=== PATIENT | male | born 1945 | race Caucasian/White ===

== ENCOUNTER 2018-02-06 20:44 | Emergency (ER) | payer OTHER ==
--- NOTE | 2018-02-06 21:53 | RAD REPORT ---
EXAM DESCRIPTION: RAD - ENTEROSTOMY TUBE CHECK W/CONTR - 02/06/2018 9:35 pm CLINICAL HISTORY: Abdominal pain/gastrostomy tube check FINDINGS: The doorperson film demonstrates the tip of the gastrostomy tube overlying the stomach. Gastrografin was administered into the gastrostomy tube. Contrast opacifies the gastric antrum. No ex travasation of contrast is seen. Contrast flows into the duodenum.
--- NOTE | 2018-02-06 21:56 | ER ---
Nurse's Notes [facility] Name: Sai Hobbs Age: 73 yrs Sex: Male : 1945 Arrival Date: 02/06/2018 Time: 20:50 Bed 25 Private MD: Diagnosis: Gastrostomy malfunction Presentation: 02/06 20:51 Presenting complaint: EMS states: toned out for report of pt having G-tube pulled out bb with a part missing. Transition of care: patient was received from another setting of care (long-term care facility), [facility]. Onset of symptoms was February 06, 2018. Risk Assessment: Do you want to hurt yourself or someone else? Patient reports no desire to harm self or others. Initial Sepsis Screen: Does the patient meet any 2 criteria? No. Patient's initial sepsis screen is negative. Does the patient have a suspected source of infection? No. Patient's initial sepsis screen is negative. Care prior to arrival: None. 20:51 Method Of Arrival: EMS: [facility] bb 20:51 Acuity: RAZIA 4 bb Historical: - Allergies: 20:58 No Known Allergies; bb - Home Meds: 20:58 amlodipine 10 mg oral tab 1 tab once daily [Active]; atorvastatin 20 mg Oral tab 1 tab bb once daily [Active]; clonidine HCl 0.1 mg Oral tab 1 tab 3 times per day for Hypertension [Active]; clopidogrel 75 mg Oral tab 1 tab once daily [Active]; Depakote Sprinkles 125 mg Oral cpSP 1 caps 3 times per day [Active]; finasteride 5 mg Oral tab 1 tab once daily [Active]; levothyroxine 100 mcg tab 1 tab once daily [Active]; metoprolol tartrate 25 mg Oral tab 1 tab 2 times per day [Active]; Namenda 10 mg Oral tab 1 tab 2 times per day [Active]; tamsulosin 0.4 mg Oral cp24 1 cap twice daily [Active]; trazodone 50 mg Oral tab 1 tab at bedtime [Active]; - PMHx: 20:58 Aphasia; Bipolar disorder; Dementia; DYSPHAGIA; Hypertension; Hypothyroidism; bb Schizophrenia; - Immunization history:: Adult Immunizations up to date. - Social history:: Smoking status: unknown. - Ebola Screening: : No symptoms or risks identified at this time. Screenin:06 Abuse screen: Denies threats or abuse. Denies injuries from another. Nutritional rv screening: No deficits noted. Tuberculosis screening: No symptoms or risk factors identified. Fall Risk None identified. Assessment: 21:04 General: Appears in no apparent distress. comfortable, slender, Behavior is calm, rv combative. Pain: Unable to use pain scale. Patient is disoriented. Neuro: Level of Consciousness is awake. Cardiovascular: Heart tones S1 S2 present. Respiratory: Airway is patent. GI: No signs and/or symptoms were reported involving the gastrointestinal system. GI: PULLED OUT PEG TUBE FROM HOME HEALTH. : No signs and/or symptoms were reported regarding the genitourinary system. EENT: No signs and/or symptoms were reported regarding the EENT system. 22:34 Reassessment: Patient appears in no apparent distress at this time. Patient is alert, rv oriented x 3, equal unlabored respirations, skin warm/dry/pink. EMS [facility] CAME IN TO TRANSPORT PATIENT BACK TO [facility]. Vital Signs: 20:47 BP 169 / 96 RA Supine (auto/reg); Pulse 65; Temp 97.7(TE); Pulse Ox 95% on R/A; jp3 20:50 BP 178 / 102; Pulse 66; Resp 18 S; Pulse Ox 99% on R/A; bb 22:35 BP 147 / 90; Pulse 65; Pulse Ox 99% on R/A; rv ED Course: 20:50 Patient arrived in ED. bb 20:50 Arm band placed on Patient placed in an exam room, on a stretcher, on pulse oximetry. bb 20:53 Triage completed. bb 20:54 Patient has correct armband on for positive identification. Side rails up X 1. Pulse ox jp3 on. NIBP on. 20:58 Jorge Chew MD is Attending Physician. gs 21:05 PEG TUBE PLACEMENT. rv 21:35 ENTEROSTOMY TUBE CHECK W/CONTR In Process Unspecified. EDMS 21:37 X-ray completed. Portable x-ray completed in exam room. Patient tolerated procedure sw poorly. 22:37 Patient did not have IV access during this emergency room visit. rv Administered Medications: No medications were administered Outcome: 21:55 Discharge ordered by . gs 22:36 Discharged to long-term. Report called to ADILSON ORTIZ Transfer form completed. rv 22:36 Condition: improved 22:36 Discharge instructions given to EMS. 22:37 Patient left the ED. rv Signatures: Dispatcher [employer] EDBreanna Cabrera RN RN bb Warren, Shannon sw Starr, Gregory, MD MD gs Vicente, Ronaldo, RN RN rv Pisarski, Jacob jp3
--- NOTE | 2018-02-06 21:56 | EDPHYS ---
Physician Documentation [facility] Name: Sai Hobbs Age: 73 yrs Sex: Male : 1945 Arrival Date: 02/06/2018 Time: 20:50 Bed 25 Private MD: ED Physician Jorge Chew HPI: 02/06 21:52 This 73 yrs old Male presents to ER via EMS with complaints of G-TUBE gs displacement. 21:52 Unable to obtain HPI due to baseline dementia. gs Historical: - Allergies: 20:58 No Known Allergies; bb - Home Meds: 20:58 amlodipine 10 mg oral tab 1 tab once daily [Active]; atorvastatin 20 mg Oral tab 1 tab bb once daily [Active]; clonidine HCl 0.1 mg Oral tab 1 tab 3 times per day for Hypertension [Active]; clopidogrel 75 mg Oral tab 1 tab once daily [Active]; Depakote Sprinkles 125 mg Oral cpSP 1 caps 3 times per day [Active]; finasteride 5 mg Oral tab 1 tab once daily [Active]; levothyroxine 100 mcg tab 1 tab once daily [Active]; metoprolol tartrate 25 mg Oral tab 1 tab 2 times per day [Active]; Namenda 10 mg Oral tab 1 tab 2 times per day [Active]; tamsulosin 0.4 mg Oral cp24 1 cap twice daily [Active]; trazodone 50 mg Oral tab 1 tab at bedtime [Active]; - PMHx: 20:58 Aphasia; Bipolar disorder; Dementia; DYSPHAGIA; Hypertension; Hypothyroidism; bb Schizophrenia; - Immunization history:: Adult Immunizations up to date. - Social history:: Smoking status: unknown. - Ebola Screening: : No symptoms or risks identified at this time. ROS: 21:52 Unable to obtain ROS due to baseline dementia. gs Exam: 21:52 Constitutional: The patient appears non-toxic. gs 21:52 Cardiovascular: Rate: normal, Rhythm: regular, Pulses: no pulse deficits are appreciated. 21:52 Respiratory: Exam negative for acute changes, Breath sounds: are clear throughout. 21:52 Abdomen/GI: Palpation: abdomen is soft and non-tender, in all quadrants, in the stoma some excoriation. Vital Signs: 20:47 BP 169 / 96 RA Supine (auto/reg); Pulse 65; Temp 97.7(TE); Pulse Ox 95% on R/A; jp3 20:50 BP 178 / 102; Pulse 66; Resp 18 S; Pulse Ox 99% on R/A; bb 22:35 BP 147 / 90; Pulse 65; Pulse Ox 99% on R/A; rv Procedures: 21:52 G-tube placement: a 16 Gibraltarian catheter was placed, by the ED physician, Jorge gillette MD placement confirmed by Gastrografin study. MDM: 20:59 Patient medically screened. 21:52 Data reviewed: vital signs, nurses notes. 02/06 21:35 Order name: ENTEROSTOMY TUBE CHECK W/CONTR; Complete Time: 21:55 EDMS Administered Medications: No medications were administered Disposition: 02/06/18 21:55 Discharged to Home. Impression: Gastrostomy malfunction. - Condition is Stable. - Discharge Instructions: Gastrostomy Tube Replacement. - SBAR form, Medication Reconciliation Form, Thank You Letter, Antibiotic Education, Prescription Opioid Use form. - Follow up: Private Physician; When: 2 - 3 days; Reason: Re-evaluation by your physician. Signatures: Dispatcher [employer] [facility] Breanna Jenkins RN RN Jorge Brand MD MD Félix Venegas RN RN rv Corrections: (The following items were deleted from the chart) 21:35 21:00 Abdomen 1 View+RAD.RAD.BRZ ordered. [facility] EDHI 22:37 21:55 02/06/2018 21:55 Discharged to Home. Impression: Gastrostomy malfunction. rv Condition is Stable. Forms are Medication Reconciliation Form, Thank You Letter, Antibiotic Education, Prescription Opioid Use. Follow up: Private Physician; When: 2 - 3 days; Reason: Re-evaluation by your physician.
[2018-02-06 22:43] VITALS: TEMP 97.7
[2018-02-06 22:44] VITALS: O2SAT 99
[2018-02-06 22:45] VITALS: BP 147/90
== END 2018-02-06 22:37 | disposition home or self-care (01) ==
LOC: ER 20:44
PROC: 0D20XUZ Change Feeding Device in Upper Intestinal Tract, External Approach (ICD-10-PCS; principal; 2018-02-06)
DX: K94.23 Gastrostomy malfunction (principal); F03.90 Unspecified dementia, unspecified severity, without behavioral disturbance, psychotic disturbance, mood disturbance, and anxiety; I10 Essential (primary) hypertension; E03.9 Hypothyroidism, unspecified; R13.10 Dysphagia, unspecified; Y73.8 Miscellaneous gastroenterology and urology devices associated with adverse incidents, not elsewhere classified; Y92.019 Unspecified place in single-family (private) house as the place of occurrence of the external cause
CPT/HCPCS: 49465; 99284

== ENCOUNTER 2018-02-16 03:37 | Inpatient (IN) | payer OTHER ==
[2018-02-16] MEDS ORDERED: ALBUTEROL 2.5 MG/3 ML NEB SOL ONE (04:18)
[2018-02-16] MEDS ORDERED: METHYLPREDNISOLONE 125 MG INJ ONE (04:18)
[2018-02-16] MEDS ORDERED: IPRATROPIUM BROM 0.5MG/2.5ML ONE (04:18)
[2018-02-16] MEDS ORDERED: ONDANSETRON 4 MG/2 ML VIAL ONE (04:18)
[2018-02-16 04:19] LABS: Absolute Lymphocytes (CBC) 1.3 K/uL (0.7-4.9); Absolute Monocytes 1.3 K/uL (0.1-1.3); Absolute Neutrophil 12.1 K/uL (1.8-8.0); Basophils % 0.3 % (0-1.3); Hematocrit 42.1 % (39.6-49.0); Lymphocytes % 8.8 % (15.3-44.8); MCH 28.9 pg (27.0-35.0); MCV 86.4 fL (80-100); MPV 8.4 fL (7.6-11.3); Monocytes % 8.8 % (3.3-12.3); RBC Red Blood Cell Count 4.88 M/uL (4.33-5.43)
[2018-02-16] MEDS ORDERED: PANTOPRAZOLE 40 MG INJ ONE (04:19)
[2018-02-16] MEDS ORDERED: CEFTRIAXONE/SWI 1gm 1 GM/10 ML SYR ONE (04:19)
[2018-02-16] MEDS ORDERED: NA CHLORIDE 0.9% 2,000 ML ONE (04:19)
[2018-02-16 04:37] LABS: Albumin 3.8 g/dL (3.4-5.0); Potassium 3.6 mmol/L (3.5-5.1); Protein, Total 7.8 g/dL (6.4-8.2)
[2018-02-16 04:50] LABS: Protime INR 1.11
[2018-02-16] MEDS ORDERED: ACETAMINOPHEN 650MG/RECT SUPP PR ONE (05:43)
[2018-02-16 05:59] LABS: Urine Blood 1+ (NEG); Urine Glucose NEGATIVE (NEG); Urine Protein 2+ (NEG); Urine Specific Gravity 1.025 (1.005-1.030)
[2018-02-16 06:03] LABS: Urine Bacteria LOADED /HPF (NONE SEEN); Urine Culture Reflex Order NOT NEEDED
[2018-02-16 06:04] LABS: Urine RBC <5 /HPF (NONE SEEN)
--- NOTE | 2018-02-16 06:22 | EDPHYS ---
Physician Documentation [facility] Name: Sai Hobbs Age: 73 yrs Sex: Male : 1945 Arrival Date: 02/16/2018 Time: 03:40 Bed 7 Private MD: ED Physician Chilo Zaragoza HPI: 02/16 03:43 This 73 yrs old Male presents to ER via Unassigned with complaints of ps1 Nausea/Vomiting. 03:43 The patient presents to the emergency department vomiting blood, a small amount. ps1 patient has had repetitive vomiting today and started having dark coffee ground emesis tonight. He was BIBEMS, has a history of aphasia, [facility] patient. Tachycardia. . Historical: - Allergies: 03:52 No Known Allergies; ao - Home Meds: 03:52 amlodipine 10 mg tab 1 tab once daily [Active]; atorvastatin 20 mg Oral tab 1 tab once ao daily [Active]; clopidogrel 75 mg Oral tab 1 tab once daily [Active]; finasteride 5 mg Oral tab 1 tab once daily [Active]; levothyroxine 100 mcg tab 1 tab once daily [Active]; Depakote Sprinkles 125 mg Oral cpSP 1 caps 3 times per day [Active]; metoprolol tartrate 25 mg Oral tab 1 tab 2 times per day [Active]; Namenda 10 mg Oral tab 1 tab 2 times per day [Active]; tamsulosin 0.4 mg Oral cp24 1 cap twice daily [Active]; clonidine HCl 0.1 mg Oral tab 1 tab 3 times per day for Hypertension [Active]; - PMHx: 03:52 Aphasia; Bipolar disorder; Dementia; DYSPHAGIA; Hypertension; Hypothyroidism; ao Schizophrenia; CVA; muscle wasting and atrophy; - PSHx: 03:52 None; ao - Immunization history:: Adult Immunizations unknown. - Social history:: Smoking status: unknown. - Ebola Screening: : Patient negative for fever greater than or equal to 101.5 degrees Fahrenheit, and additional compatible Ebola Virus Disease symptoms Patient denies exposure to infectious person Patient denies travel to an Ebola-affected area in the 21 days before illness onset. ROS: 03:43 Unable to obtain ROS due to aphasia. ps1 Exam: 03:43 Head/Face: Normocephalic, atraumatic. ENT: Nares patent. No nasal discharge, no ps1 septal abnormalities noted. Tympanic membranes are normal and external auditory canals are clear. Oropharynx with no redness, swelling, or masses, exudates, or evidence of obstruction, uvula midline. Mucous membranes moist. 03:43 Abdomen/GI: Soft, non-tender, with normal bowel sounds. No distension or tympany. No guarding or rebound. No evidence of tenderness throughout. Back: No spinal tenderness. No costovertebral tenderness. Full range of motion. Skin: Warm, dry with normal turgor. Normal color with no rashes, no lesions, and no evidence of cellulitis. MS/ Extremity: Pulses equal, no cyanosis. Neurovascular intact. Full, normal range of motion. Neuro: Awake and alert, GCS 15, oriented to person, place, time, and situation. Cranial nerves II-XII grossly intact. Sensory grossly intact. 03:43 Constitutional: The patient appears alert, in obvious distress. 03:43 Head/face: 03:43 Cardiovascular: Rate: tachycardic, Rhythm: regular. 03:43 Respiratory: moderate respiratory distress is noted, Respirations: normal, tachypneic. Vital Signs: 03:43 BP 113 / 66; Pulse 115; Resp 26; Temp 99.8(A); Pulse Ox 100% on 2 lpm NC; Weight 68.04 ao kg (R); Height 5 ft. 5 in. (165.10 cm) (R); 05:32 BP 136 / 74; Pulse 126; Resp 36; Temp 100.5(A); Pulse Ox 97% on 2 lpm NC; ak1 06:22 BP 133 / 75; Pulse 117 MON; Resp 37 S; Temp 99.2(A); Pulse Ox 97% on 2 lpm NC; ak1 07:25 BP 136 / 66; Pulse 109; Resp 19; Pulse Ox 100% on R/A; hb 03:43 Body Mass Index 24.96 (68.04 kg, 165.10 cm) ao MDM: 04:17 Patient medically screened. ps1 02/16 03:49 Order name: Protime (+inr); Complete Time: 04:54 ps1 02/16 03:49 Order name: Blood Culture Adult (2) ps1 02/16 03:49 Order name: CBC with Diff; Complete Time: 04:25 ps1 02/16 03:49 Order name: Lactate; Complete Time: 04:54 ps1 02/16 03:49 Order name: Lipase; Complete Time: 04:54 ps1 02/16 03:49 Order name: Troponin (emerg Dept Use Only); Complete Time: 04:54 ps1 02/16 03:49 Order name: Chest Single View XRAY ps1 02/16 03:49 Order name: CT Abd/Pelvis - W/Contrast ps1 02/16 03:49 Order name: CMP; Complete Time: 04:54 ps1 02/16 04:48 Order name: Urine Dipstick--Ancillary (enter results); Complete Time: 06:01 ms 02/16 04:48 Order name: Urine Culture ms 02/16 04:48 Order name: Urine Microscopic Only; Complete Time: 06:08 ms 02/16 06:13 Order name: Lactate ak1 02/16 03:49 Order name: Cardiac monitoring; Complete Time: 04:39 ps1 02/16 03:49 Order name: EKG - Nurse/Tech; Complete Time: 05:04 ps1 02/16 03:49 Order name: IV Saline Lock - Large Bore; Complete Time: 04:39 ps1 02/16 03:49 Order name: Labs collected and sent; Complete Time: 04:39 ps1 02/16 03:49 Order name: O2 Per Protocol; Complete Time: 04:40 ps1 02/16 03:49 Order name: O2 Sat Monitoring; Complete Time: 04:40 ps1 02/16 03:49 Order name: Urine Dipstick-Ancillary (obtain specimen); Complete Time: 04:40 ps1 02/16 03:49 Order name: Straight Cath - Urine; Complete Time: 04:38 ps1 Administered Medications: 04:35 Drug: Zofran 4 mg Route: IVP; Site: right forearm; ao 05:04 Follow up: Response: No adverse reaction ak1 04:38 Drug: Rocephin - (cefTRIAXone) 1 grams Route: IVPB; Infused Over: 30 mins; Site: left ao forearm; 04:48 Follow up: IV Status: Completed infusion ak1 04:40 Drug: NS 0.9% (30 ml/kg) 30 ml/kg Route: IV; Rate: bolus; Site: right forearm; ak1 06:25 Follow up: IV Status: Completed infusion ak1 04:40 Drug: SOLU-Medrol 125 mg Route: IVP; Site: right forearm; ao 05:05 Follow up: Response: No adverse reaction ak1 04:40 Drug: DuoNeb (3:1) (2.5 mg - 0.5 mg) 3 ml Route: Nebulizer; ao 05:04 Follow up: Response: No adverse reaction ak1 04:40 Drug: ProTONIX 80 mg Route: IVP; Site: right forearm; ao 05:04 Follow up: Response: No adverse reaction ak1 05:47 Drug: Tylenol Suppository 650 mg Route: MN; ak1 06:06 Follow up: Response: No adverse reaction ak1 Disposition: 02/16/18 06:22 Hospitalization ordered by Jett Villalpando for Inpatient Admission. Preliminary diagnosis are Sepsis, Acute Cystitis, lactic acidosis, Infrarenal AAA. - Bed requested for Telemetry/MedSurg (Inpatient). - Status is Inpatient Admission. hb - Condition is Fair. - Problem is new. - Symptoms are unchanged. UTI on Admission? Yes Signatures: Dispatcher [employer] EDMS Jeni Hackett RN RN ak1 Ishan Mcqueen RN RN ao Baxter, Heather, RN RN Chilo Zaragoza MD MD ps1 Joy Novak Corrections: (The following items were deleted from the chart) 05:48 03:49 Accucheck ordered. ps1 ak1 07:27 06:22 Hospitalization Ordered by Jett Villalpando MD for Inpatient Admission. Preliminary eb diagnosis is Sepsis; Acute Cystitis; lactic acidosis; Infrarenal AAA. Bed requested for Telemetry/MedSurg (Inpatient). Status is Inpatient Admission. Condition is Fair. Problem is new. Symptoms are unchanged. UTI on Admission? Yes. ps1 08:03 07:27 02/16/2018 06:22 Hospitalization Ordered by Jett Villalpando MD for Inpatient hb Admission. Preliminary diagnosis is Sepsis; Acute Cystitis; lactic acidosis; Infrarenal AAA. Bed requested for Telemetry/MedSurg (Inpatient). Status is Inpatient Admission. Condition is Fair. Problem is new. Symptoms are unchanged. UTI on Admission? Yes. eb
--- NOTE | 2018-02-16 06:22 | ER ---
Nurse's Notes [facility] Name: Sai Hobbs Age: 73 yrs Sex: Male : 1945 Arrival Date: 02/16/2018 Time: 03:40 Bed 7 Private MD: Diagnosis: Sepsis;Acute Cystitis;lactic acidosis;Infrarenal AAA Presentation: 02/16 03:42 Presenting complaint: EMS states: Patient has been vomiting during the day. Nursing ao home [place] reported last emesis was coffee ground. Transition of care: patient was not received from another setting of care. Onset of symptoms is unknown. Care prior to arrival: None. 03:42 Method Of Arrival: EMS: [facility] ao 03:42 Acuity: RAZIA 3 ao 04:15 Risk Assessment: Do you want to hurt yourself or someone else? Patient reports no ao desire to harm self or others. Initial Sepsis Screen: Does the patient meet any 2 criteria? RR > 20 per min. Altered Mental Status. Yes Does the patient have a suspected source of infection? No. Patient's initial sepsis screen is negative. If YES to both, name of provider notified: Chilo Zaragoza MD. Triage Assessment: 04:36 GI: Reports correction report vomiting blood. ao 04:41 General: Appears in no apparent distress. emaciated, Behavior is cooperative, Smells of ak1 urine. Historical: - Allergies: 03:52 No Known Allergies; ao - Home Meds: 03:52 amlodipine 10 mg tab 1 tab once daily [Active]; atorvastatin 20 mg Oral tab 1 tab once ao daily [Active]; clopidogrel 75 mg Oral tab 1 tab once daily [Active]; finasteride 5 mg Oral tab 1 tab once daily [Active]; levothyroxine 100 mcg tab 1 tab once daily [Active]; Depakote Sprinkles 125 mg Oral cpSP 1 caps 3 times per day [Active]; metoprolol tartrate 25 mg Oral tab 1 tab 2 times per day [Active]; Namenda 10 mg Oral tab 1 tab 2 times per day [Active]; tamsulosin 0.4 mg Oral cp24 1 cap twice daily [Active]; clonidine HCl 0.1 mg Oral tab 1 tab 3 times per day for Hypertension [Active]; - PMHx: 03:52 Aphasia; Bipolar disorder; Dementia; DYSPHAGIA; Hypertension; Hypothyroidism; ao Schizophrenia; CVA; muscle wasting and atrophy; - PSHx: 03:52 None; ao - Immunization history:: Adult Immunizations unknown. - Social history:: Smoking status: unknown. - Ebola Screening: : Patient negative for fever greater than or equal to 101.5 degrees Fahrenheit, and additional compatible Ebola Virus Disease symptoms Patient denies exposure to infectious person Patient denies travel to an Ebola-affected area in the 21 days before illness onset. Screenin:13 Abuse screen: Denies threats or abuse. Denies injuries from another. Nutritional ao screening: Difficulty chewing/swallowing?. Tuberculosis screening: No symptoms or risk factors identified. Fall Risk Secondary diagnosis (15 points) IV access (20 points). Assessment: 03:53 General: Appears in no apparent distress. slender. Pain: Unable to use pain scale. ao FLACC scale score is 0 out of 10. Neuro: Level of Consciousness is awake, Oriented to person, Speech with expressive aphasia noted. Cardiovascular: Capillary refill < 3 seconds. Respiratory: Airway is patent Respiratory effort is asymmetrical. GI: Abdomen is non-distended, Parent/caregiver reports the patient having nausea, vomiting, Vomiting blood. : No signs and/or symptoms were reported regarding the genitourinary system. EENT: No signs and/or symptoms were reported regarding the EENT system. Derm: Skin is intact, Skin is pink, warm \T\ dry. normal, Skin temperature is warm. Musculoskeletal: Range of motion: limited in all extremities, Contracted all extremities. 05:07 Reassessment: No changes from previously documented assessment. pt continues to breath ak1 26 to 30 breaths per minuet. pt continue to lay in position on right side. pt awake and tolerating procedures well. pt currently in CT, will update vitals upon return as well as continue septic fluid bolus. 06:09 Reassessment: No changes from previously documented assessment. sepsis sheet completed ak1 and placed on the chart. 07:26 Reassessment: Patient appears in no apparent distress at this time. Patient and/or hb family updated on plan of care and expected duration. Pain level reassessed. Admission ordered, awaiting room assignment at this time. Vital Signs: 03:43 BP 113 / 66; Pulse 115; Resp 26; Temp 99.8(A); Pulse Ox 100% on 2 lpm NC; Weight 68.04 ao kg (R); Height 5 ft. 5 in. (165.10 cm) (R); 05:32 BP 136 / 74; Pulse 126; Resp 36; Temp 100.5(A); Pulse Ox 97% on 2 lpm NC; ak1 06:22 BP 133 / 75; Pulse 117 MON; Resp 37 S; Temp 99.2(A); Pulse Ox 97% on 2 lpm NC; ak1 07:25 BP 136 / 66; Pulse 109; Resp 19; Pulse Ox 100% on R/A; hb 03:43 Body Mass Index 24.96 (68.04 kg, 165.10 cm) ao ED Course: 03:40 Patient arrived in ED. ao 03:40 Chilo Zaragoza MD is Attending Physician. ps1 03:43 Triage completed. ao 03:52 Arm band placed on right wrist. Patient placed in an exam room, on a stretcher, on ao lead carpenter, on pulse oximetry, Patient notified of wait time. 04:00 Inserted saline lock: 20 gauge in right forearm, using aseptic technique. ,using ak1 aseptic technique. placed by Ishan Landeros RN Blood collected. 04:00 Oxygen administration via nasal cannula \T\ 2L/min. ak1 04:11 Chest Single View XRAY In Process Unspecified. EDMS 04:30 Straight cath inserted, using sterile technique, 16 Fr. Specimen obtained. Patient ak1 tolerated well. 04:36 Patient has correct armband on for positive identification. Pulse ox on. NIBP on. ao 04:37 Ishan Mcqueen RN is Primary Nurse. ao 04:49 Notified ED physician of a critical lab result(s). lactate of 5.1 Dr Zaragoza notified. bb 05:07 No provider procedures requiring assistance completed. ak1 05:21 CT Abd/Pelvis - W/Contrast In Process Unspecified. EDMS 05:23 CT completed. Pt tolerated procedure poorly. Patient moved to CT via stretcher. Patient eh moved back from CT. 05:34 Jeni Hackett RN is Primary Nurse. ak1 06:21 Jett Villalpando MD is Hospitalizing Provider. ps1 06:25 Patient admitted, IV remains in place. ak1 07:36 Primary Nurse role handed off by Jeni Hackett RN eb 07:37 Dye, Cortney, RN is Primary Nurse. hb 07:37 T\T\S collected, blood band applied to patient. add on labs drawn by ar and sent to lab. 3 Administered Medications: 04:35 Drug: Zofran 4 mg Route: IVP; Site: right forearm; ao 05:04 Follow up: Response: No adverse reaction ak1 04:38 Drug: Rocephin - (cefTRIAXone) 1 grams Route: IVPB; Infused Over: 30 mins; Site: left ao forearm; 04:48 Follow up: IV Status: Completed infusion ak1 04:40 Drug: NS 0.9% (30 ml/kg) 30 ml/kg Route: IV; Rate: bolus; Site: right forearm; ak1 06:25 Follow up: IV Status: Completed infusion ak1 04:40 Drug: SOLU-Medrol 125 mg Route: IVP; Site: right forearm; ao 05:05 Follow up: Response: No adverse reaction ak1 04:40 Drug: DuoNeb (3:1) (2.5 mg - 0.5 mg) 3 ml Route: Nebulizer; ao 05:04 Follow up: Response: No adverse reaction ak1 04:40 Drug: ProTONIX 80 mg Route: IVP; Site: right forearm; ao 05:04 Follow up: Response: No adverse reaction ak1 05:47 Drug: Tylenol Suppository 650 mg Route: LA; ak1 06:06 Follow up: Response: No adverse reaction ak1 Outcome: 06:22 Decision to Hospitalize by Provider. ps1 06:25 Condition: unchanged ak1 06:25 Instructed on the need for admit. 07:59 Admitted to Tele accompanied by nurse, accompanied by tech, via stretcher, room 417, with chart, Report called to JARED Goldstein 08:03 Patient left the ED. Signatures: Dispatcher [employer] EDMS Fred Silva Brenda, RN RN bb Krenek, Amber RN RN tristen1 Ishan Mcqueen RN RN ao Baxter, Heather, RN RN Nubia Miramontes formerly [facility] Chilo Zaragoza MD MD ps1 Botello, Elizabeth eb
[2018-02-16] MEDS ORDERED: MORPHINE 4 MG/ML SYR IV PRN (07:06)
[2018-02-16] MEDS ORDERED: ONDANSETRON 4 MG/2 ML VIAL IV PRN (07:06)
[2018-02-16] MEDS ORDERED: ACETAMINOPHEN 500 MG TAB PO PRN (07:06)
[2018-02-16] MEDS ORDERED: NA CHLORIDE 0.9% 1,000 ML IV SCH (08:00)
[2018-02-16] MEDS: DIVALPROEX NA 125 MG CAP PO SCH ×3 (09:00→21:52)
[2018-02-16] MEDS: WATER FOR INJ,STERILE 10 ML IV SCH ×2 (09:00→21:30)
[2018-02-16] MEDS: HYDROCORTISONE SUC 100 MG INJ IV SCH ×2 (09:00→21:52)
--- NOTE | 2018-02-16 09:11 | RAD REPORT ---
EXAM DESCRIPTION: RAD - Chest Single View - 02/16/2018 4:11 am CLINICAL HISTORY: Abdominal pain, dysphagia, cough COMPARISON: September 2016 TECHNIQUE: AP portable chest image was obtained [id number] hours . FINDINGS: Positioning was not optimal for the examination. Interstitial markings are prominent but n ot clearly different from comparison. No superimposed failure, infiltrate or mass. Heart size and pul monary vasculature within normal limits. Loop recorder overlies the lower left chest. Several skin fo ld artifacts are present. No measurable pleural effusion and no pneumothorax. No gross bony abnormali ty seen. Aorta is accentuated by rotation and positioning. IMPRESSION: Chronic interstitial lung disease. No acute finding or significant change from September 2016.
--- NOTE | 2018-02-16 09:18 | P.HP ---
Certification for Inpatient Patient admitted to: Inpatient With expected LOS: >2 Midnights Patient will require the following post-hospital care: None Practitioner: I am a practitioner with admitting privileges, knowledge of patient current condition, hospital course, and medical plan of care. Services: Services provided to patient in accordance with Admission requirements found in Title 42 Section 412.3 of the Code of Federal Regulations Patient History Date of Service: 02/16/18 Reason for admission: UTI/septic/AFib with RVR History of Present Illness: Patient is a 73-year-old gentleman who came to the hospital with fever, shakes, and chills. Patient lives at [facility]. Patient apparently was running fevers. Patient also was tachycardic. Patient came into the emergency room for further evaluation. In the emergency room patient was found to have a urinary tract infection. Patient was started on IV hydration and blood cultures were obtained. Patient was also found to have AFib with RVR. Patient is on a beta-mesfin. According to patient's daughter, Raissa, who is patient's medical prior of real estate attorney([phone]) patient is a full code. Patient normally gets to wheelchair and scoots around the facility. Patient is aphasic. At this time patient will need admission. He will require inpatient workup. Patient is admitted to the hospital for further workup Allergies No Known Allergies Allergy (Verified 09/27/16 02:56) Home Medications: Acetaminophen [Acetaminophen ER] 650 mg PO Q4H PRN 09/27/16 Atorvastatin Calcium [Lipitor*] 20 mg PO BEDTIME 09/27/16 Clopidogrel Bisulfate [Plavix*] 75 mg PO DAILY 09/27/16 Divalproex [Depakote Sprinkle*] 125 mg PO TID 09/27/16 Donepezil [Aricept*] 10 mg PO BEDTIME 09/27/16 Finasteride [Proscar*] 5 mg PO DAILY 09/27/16 Guaifenesin/Dextromethorphan [Robafen-Dm Syrup] 5 ml PO Q6H PRN 09/27/16 Levothyroxine [Synthroid*] 100 mcg PO DAILY 09/27/16 Memantine HCl [Namenda*] 10 mg PO BID 09/27/16 Metoprolol Tartrate [Lopressor*] 25 mg PO DAILY 09/27/16 Multivitamin [Daily Multivitamin] 1 tab PO DAILY 09/27/16 Tamsulosin HCl [Flomax] 0.4 mg PO BID 09/27/16 Trazodone HCl 25 mg PO BEDTIME 09/27/16 cloNIDine HCl [Catapres*] 0.1 mg PO TID 09/27/16 Amlodipine [Norvasc*] 10 mg PO DAILY #30 tab 09/29/16 predniSONE [Prednisone*] 40 mg PO [id number] #20 tab 09/29/16 - Past Medical/Surgical History Diabetic: No -: Hypertension -: Hyperlipidemia -: Hypothyroidism -: Dementia -: Benign prostatic hyperplasia -: History of urinary retention -: History of CVA -: Iron deficiency anemia -: Bipolar Disorder -: Schizophrenia -: PEG -: cardiac stent Psychosocial/ Personal History: intermediate patient. - Family History Father Family History: Reviewed- Non-Contributory - Social History Alcohol use: No CD- Drugs: No Caffeine use: No Review of Systems is unable to be obtained Physical Examination - Vital Signs Temperature: 99.2 F Blood Pressure: 136/66 Pulse: 109 Respirations: 19 - Physical Exam General: Alert, In no apparent distress, Confused HEENT: Atraumatic, PERRLA, Mucous membr. moist/pink, EOMI, Sclerae nonicteric Neck: Supple, 2+ carotid pulse no bruit, No LAD, Without JVD or thyroid abnormality Respiratory: Clear to auscultation bilaterally, Normal air movement Cardiovascular: Regular rate/rhythm, Normal S1 S2, Systolic murmur Gastrointestinal: Normal bowel sounds, Soft and benign, Non-distended, No tenderness Musculoskeletal: No clubbing, No swelling, No tenderness Integumentary: No rashes Neurological: Cranial nerves 3-12 intact, Normal reflexes 2+, Abnormal gait, Abnormal speech, Abnormal strength, Abnormal tone, Abnormal affect Lymphatics: No axilla or inguinal lymphadenopathy - Studies Laboratory Data (last 24 hrs) 02/16/18 04:00: Sodium 148 H, Potassium 3.6, BUN 29 H, Creatinine 1.60 H, Glucose 162 H, Total Bilirubin 1.0, AST 13 L, ALT 13, Alkaline Phosphatase 125 H , Lipase 39 L 02/16/18 04:00: WBC 14.8 H, Hgb 14.1, Hct 42.1, Plt Count 204 02/16/18 04:00: PT 13.1 H, INR 1.11 Assessment & Plan - Problems (Diagnosis) (1) Acute sepsis Current Visit: Yes Status: Acute (2) COPD exacerbation Onset Date: 09/27/16 Current Visit: No Status: Acute (3) Dementia Current Visit: No Status: Chronic Qualifiers: Dementia type: unspecified type Dementia behavioral disturbance: without behavioral disturbance Qualified Code(s): F03.90 - Unspecified dementia without behavioral disturbance (4) History of CVA (cerebrovascular accident) Current Visit: No Status: Chronic (5) History of coronary artery disease Current Visit: No Status: Chronic (6) UTI (urinary tract infection) Onset Date: 03/26/16 Current Visit: No Status: Suspected Qualifiers: Urinary tract infection type: acute cystitis Hematuria presence: without hematuria Qualified Code(s): N30.00 - Acute cystitis without hematuria (7) DIEGO (acute kidney injury) Current Visit: Yes Status: Acute - Plan PLAN: 1. IV antibiotics 2. IV hydration 3. Lopressor for rate control 4. Resume anticoagulation 5. Strict BS and BP control 6. Monitor renal function 7. - Advance Directives Does patient have a Living Will: No Does patient have a Durable POA for Healthcare: No
--- NOTE | 2018-02-16 09:19 | RAD REPORT ---
EXAM DESCRIPTION: CT - Abdomen Pelvis W Contrast - 02/16/2018 6:16 am CLINICAL HISTORY: Abdominal pain, vomiting, coffee-ground emesis, dysphagia A preliminary written report was provided at the time of the study, and the report was reviewed prio r to final dictation. COMPARISON: CT imaging September 2016 TECHNIQUE: Biphasic, helical CT imaging of the abdomen and pelvis was performed following 100 ml non -ionic IV contrast. No oral contrast administered. Patient was imaged right side down. All CT scans are performed using dose optimization technique as appropriate and may include automated exposure control or mA/KV adjustment according to patient size. FINDINGS: Fibrotic an obstructive changes of the lung base. No acute lung base finding. No pericardi al thickening or effusion. The liver, spleen, and pancreas show no suspicious findings. At least 2 gallstones are present. No ac tive gallbladder process suspected. No biliary tree dilatation. Symmetric renal function is seen with no hydronephrosis or suspicious renal mass. Contracted urinary bladder shows no gross abnormality. Air and fluid-filled stomach is present. PEG tube is in place. Balloon tip is in the antrum or possib le duodenal bulb. No gastric wall thickening or mass seen. Small bowel loops are not dilated. No acute colon process seen. Rectum is dilated 8 cm due to large s tool volume. A rectal mass or wall thickening not seen. No free air, free fluid or inflammatory stranding. No hernia, mass or bulky lymphadenopathy. No adre nal abnormality. Disc and bony degenerative changes are present. Partial compression fracture of L2 body noted. Cook Helper Preserves ior wall height is preserved. Slight wedging of the T12-T11 and L1 bodies are noted. The September 2016 C T chest is not fully imaged this portion of the upper lumbar spine. No lytic or blastic component to the L2 body findings. Age is indeterminate. Patient has a large infrarenal abdominal aortic aneurysm measuring 7.3 cm AP x 7.8 cm TR. Central con trast opacified lumen is 3.1 x 3.6 cm. No periaortic fluid or stranding. IMPRESSION: No acute or focal abnormality of the stomach to explain coffee-ground emesis. PEG tube i s in place without an acute associated finding. Cholelithiasis without active gallbladder, biliary tree or pancreatic finding. Large 7.8 centimeter infrarenal abdominal aortic aneurysm. No adequate comparison imaging available to assess for growth. No acute component seen. Large stool volume dilates the rectum to 8 cm. No mass or wall thickening identifiable. Age-indeterminate L2 compression fracture with mild wedging of the T11-L1 bodies.
[2018-02-16] MEDS ORDERED: NA CHLORIDE 0.9% 1,000 ML IV ONE (11:41)
[2018-02-16] MEDS: METOPROLOL TARTRATE 5 MG/5 ML INJ IV SCH ×2 (11:55→16:52)
[2018-02-16] MEDS ORDERED: FLEET ENEMA ADULT PR ONE (12:16)
[2018-02-16 12:24] LABS: Potassium 3.3 mmol/L (3.5-5.1)
[2018-02-16 12:32] LABS: Absolute Lymphocytes (CBC) 0.4 K/uL (0.7-4.9); Absolute Monocytes 0.2 K/uL (0.1-1.3); Basophils % 0.1 % (0-1.3); Hematocrit 41.3 % (39.6-49.0); Lymphocytes % 2.8 % (15.3-44.8); MPV 8.9 fL (7.6-11.3); Monocytes % 1.8 % (3.3-12.3); RBC Red Blood Cell Count 4.75 M/uL (4.33-5.43)
--- NOTE | 2018-02-16 12:47 | EKG ---
Test Date: 2018-02-16 Test Time: 04:47:54 Pattern Mechanic: ELIAN MEASUREMENT RESULTS: Intervals: Rate: 128 TX: 164 QRSD: 84 QT: 274 QTc: 400 [place]: P: 85 TX: 164 QRS: 70 T: 257 INTERPRETIVE STATEMENTS: Sinus tachycardia with premature supraventricular complexes Possible Anterior infarct, age undetermined ST & T wave abnormality, consider inferolateral ischemia Abnormal ECG Compared to ECG 09/26/2016 23:35:43 Myocardial infarct finding now present ST (T wave) deviation still present Possible ischemia still present Electronically Signed On 02-16-18 12:47:13 CDT by Oral Infante
[2018-02-16 13:35] LABS: Platelet Estimate ADEQ; Urine White Blood Cell Casts OK
[2018-02-16 13:36] LABS: Blood Morphology Comment NOT SEEN (NOT SEEN)
--- NOTE | 2018-02-16 14:04 | RAD REPORT ---
EXAM DESCRIPTION: US - Scrotum Testicles - 02/16/2018 1:51 pm CLINICAL HISTORY: enlarged rt testical Pain COMPARISON: SCROTUM TESTICLES dated 10/08/2014 FINDINGS: The right testicle 3.9 x 2.9 x 2.7 cm. No intratesticular masses or evidence of testicular torsion. The left testicle 4.5 x 3.0 x 2.7 cm. No intratesticular masses or evidence of testicular torsion. Both epididymides are normal in size and appearance. A very large right hydrocele seen. Small left hydrocele. IMPRESSION: Very large right hydrocele.
[2018-02-16] MEDS: PANTOPRAZOLE INJ 80 MG in NA CHLORIDE 0.9% 250 ML IV SCH (14:35)
[2018-02-16] MEDS: FINASTERIDE 5 MG TAB PO SCH (16:45)
[2018-02-16] MEDS: cloNIDine HCl 0.1 MG TAB PO SCH ×2 (16:47→21:52)
[2018-02-16] MEDS: CEFTRIAXONE/SWI 1gm 1 GM/10 ML SYR IV SCH (16:52)
--- NOTE | 2018-02-16 19:49 | CON ---
History Of Present Illness: This patient is a 73-year-old gentleman with multiple medical issues, ad mitted with urosepsis, UTI. Bladder was emptying on CT scan, but CT scan also showed a what seems hart ppened to be a 7 cm infrarenal AAA. The patient is full code as far as I am told. Also has atrial f ibrillation with RVR and beta mesfin. A,ultrasound done showing a very large hydrocele, which was O N the right side. The CT scan showed a 7.3 AP x 7.8 TR infrarenal abdominal aortic aneurysm. Centra l contrast opacified the lumen at 3.1 to 3.6 cm. The patient has a PEG tube. Also has some coffee-g rounds emesis. Allergies: NO KNOWN DRUG ALLERGIES. Home Medications: Tylenol, Lipitor, Plavix, Depakote, Prilosec, Proscar, guaifenesin, Synthroid, Amb ien, Lopressor, Flomax, trazodone, and Catapres. Past Medical History: No diabetes. Positive for hypertension, hyperlipidemia, hypothyroidism, demen tia, BPH, history of urinary retention, history of CVA, iron deficiency anemia, bipolar disorder, addison izophrenia, PEG tube, cardiac stents. Psychosocial History: shelter patient. Family History: Noncontributory. Social History: No alcohol, no drugs, no caffeine use. Review of Systems: Difficult to obtain. Physical Examination: Vital Signs: The patient is afebrile, stable. General: Alert, but confused. Does not speak, is aphasic. HEENT: Atraumatic, normocephalic. Neck: Supple. Chest: Clear. Heart: S1, S2. Gastrointestinal: Soft, nontender. Neurologic: Grossly intact. Musculoskeletal: No clubbing, no swelling. Lymphatic: No swelling. Laboratory Data: White count 14.8, down to 13.7, H and H is 13.7 and 41, platelet count 182. Coagul ation; PT 13.1, INR 1.1, PTT 28. Chemistry; sodium 150, potassium 3.3, chloride 112, carbon dioxide 28, BUN 25, creatinine 1.4, GFR 49, glucose 202. Lactic acid was high at 8.9 on admission, down to 2 .8. Urine showed pH 7.0, 1+ ketones, 1+ blood, positive nitrite, positive esterase Microbiology cul tures are pending. Catheterized urine and blood cultures pending. Assessment: The patient with multiple medical problems, 73-year-old. The patient is full code, but appears he should be DNR due to all medical issues. I am not sure why this patient is a full code. Does not make any sense. Nevertheless, hospital will have to honor that order and that is what the p ower of patent attorney wants. The 7 cm aortic aneurysm that could rupture at anytime. The scrotal hydroce le, I recommend conservative management. No operation for this gentleman. He is too high risk. Hyd rocele is not an emergency. He will have to live with his hydrocele for the rest of his life. Vania gutiérrez medical management. SUSANNA/MODL Voice ID: [id number] Report ID: [id number]
[2018-02-16 20:19] VITALS: BMI 25.0
[2018-02-16] MEDS: TAMSULOSIN 0.4 MG SR CAP PO SCH ×2 (21:00→21:54)
[2018-02-16] MEDS: ATORVASTATIN 20 MG TAB PO SCH (21:52)
[2018-02-16] MEDS: DONEPEZIL HCL 5 MG TAB PO SCH (21:52)
[2018-02-16] MEDS: TRAZODONE 50 MG TABLET PO SCH (21:53)
[2018-02-16] MEDS: MEMANTINE HCL 10 MG TABLET PO SCH (21:53)
[2018-02-17] MEDS: PANTOPRAZOLE INJ 80 MG in NA CHLORIDE 0.9% 250 ML IV SCH ×3 (00:36→20:46)
[2018-02-17] MEDS: METOPROLOL TARTRATE 5 MG/5 ML INJ IV SCH ×2 (00:36→08:00)
[2018-02-17] MEDS: CEFTRIAXONE/SWI 1gm 1 GM/10 ML SYR IV SCH ×2 (05:43→17:03)
[2018-02-17] MEDS: LEVOTHYROXINE SOD 0.1 MG TAB PO SCH (05:43)
[2018-02-17 06:06] LABS: Absolute Neutrophil 9.5 K/uL (1.8-8.0); Basophils % 0.2 % (0-1.3); Hematocrit 32.8 % (39.6-49.0); MCH 29.3 pg (27.0-35.0); MCV 87.3 fL (80-100); MPV 9.2 fL (7.6-11.3); RBC Red Blood Cell Count 3.75 M/uL (4.33-5.43)
[2018-02-17 06:17] LABS: Albumin 2.8 g/dL (3.4-5.0); Bilirubin Total 0.6 mg/dL (0.2-1.0); Potassium 3.7 mmol/L (3.5-5.1)
[2018-02-17] MEDS: TAMSULOSIN 0.4 MG SR CAP PO SCH ×2 (09:00→20:44)
[2018-02-17] MEDS: DIVALPROEX NA 125 MG CAP PO SCH ×3 (09:00→20:45)
[2018-02-17] MEDS: WATER FOR INJ,STERILE 10 ML IV SCH ×2 (10:50→21:00)
[2018-02-17] MEDS: HYDROCORTISONE SUC 100 MG INJ IV SCH ×2 (10:50→20:44)
[2018-02-17] MEDS: AMLODIPINE 10 MG TAB PO SCH (10:53)
[2018-02-17] MEDS: cloNIDine HCl 0.1 MG TAB PO SCH ×3 (10:53→20:46)
[2018-02-17] MEDS: METOPROLOL TAR 25 MG TAB PO SCH (10:54)
[2018-02-17] MEDS: FINASTERIDE 5 MG TAB PO SCH (12:38)
[2018-02-17] MEDS: MEMANTINE HCL 10 MG TABLET PO SCH ×2 (12:38→20:44)
--- NOTE | 2018-02-17 12:42 | P.PN ---
Subjective Date of Service: 02/17/18 Chief Complaint: UTI/septic/AFib with RVR Physical Examination - Vital Signs Temperature: 99.2 F Blood Pressure: 197/105 Pulse: 51 Respirations: 18 Pulse Ox (%): 95
--- NOTE | 2018-02-17 12:50 | P.PN ---
Subjective Date of Service: 02/17/18 Chief Complaint: UTI/septic/AFib with RVR Pt seen and examined at bedside. Chart Reviewed. Pt seems to be more alert today. Is talking. Still continues to be Altered. but At baseline pt is Demented and now does appear to be at baseline per family. CRISTIANA bolanos contacted today and prognosis and disease process explained to the family. CRISTIANA Bolanos did make patient DNR/DNI and Dr Nguyen confirmed the verbal order. Pt is scheduled for EGD today. Review of Systems General: As per HPI Physical Examination - Vital Signs Temperature: 99.2 F Blood Pressure: 197/105 Pulse: 51 Respirations: 18 Pulse Ox (%): 95 - Physical Exam General: Alert, In no apparent distress, Demented HEENT: Atraumatic Neck: Supple, JVD not distended Respiratory: Normal air movement, Crackles/rales Cardiovascular: Regular rate/rhythm, Normal S1 S2 Gastrointestinal: Normal bowel sounds, No tenderness, Other (PEG tube in place) Musculoskeletal: No tenderness Integumentary: No rashes Neurological: Normal tone, Normal reflexes 2+, Abnormal affect Lymphatics: No axilla or inguinal lymphadenopathy Urinary: Other (Scrotal Swelling and Hydrocele noted. ) External genitalia: Edema - Studies Medications List Reviewed: Yes Assessment & Plan - Problems (Diagnosis) (1) Acute sepsis Onset Date: 02/17/18 Current Visit: Yes Status: Acute Plan: Acute Sepsis most likely 2.2 to UTI -Urine culture + for 3 + gram - rods -IV Rocephin for now -F/u culture -Hemodynamically stable for now (2) UTI (urinary tract infection) Onset Date: 03/26/16 Current Visit: No Status: Acute Plan: See# 1 Qualifiers: Urinary tract infection type: acute cystitis Hematuria presence: without hematuria Qualified Code(s): N30.00 - Acute cystitis without hematuria (3) GI bleeding Current Visit: Yes Status: Acute Plan: Pt with Hematemesis x 3 days -Hgb trending down today from 14.1 to 11.6 -GI consulted. Appreciated Reccs -IV protonix ggt -EGD scheduled for today -F/u post EGD. -Type and Cross and hold 2 units Qualifiers: GI bleed type/associated pathology: gastrointestinal hemorrhage with hematemesis Qualified Code(s): K92.0 - Hematemesis (4) DIEGO (acute kidney injury) Onset Date: 02/17/18 Current Visit: Yes Status: Acute Plan: BUN.CR improved today -Most Likely 2.2 to UTI vs Dehydration (5) COPD (chronic obstructive pulmonary disease) Current Visit: No Status: Chronic Qualifiers: COPD type: unspecified COPD Qualified Code(s): J44.9 - Chronic obstructive pulmonary disease, unspecified (6) Bipolar 1 disorder Current Visit: No Status: Chronic (7) Dementia Current Visit: No Status: Chronic Qualifiers: Dementia type: unspecified type Dementia behavioral disturbance: without behavioral disturbance Qualified Code(s): F03.90 - Unspecified dementia without behavioral disturbance (8) History of CVA (cerebrovascular accident) Current Visit: No Status: Chronic (9) History of coronary artery disease Current Visit: No Status: Chronic (10) Hypertension Current Visit: No Status: Chronic Qualifiers: Hypertension type: essential hypertension Qualified Code(s): I10 - Essential (primary) hypertension Discharge Plan: Alf - Code Status/Comfort Care Code Status Assessed: Yes Critical Care: No
--- NOTE | 2018-02-17 14:07 | RAD REPORT ---
EXAM DESCRIPTION: RAD - Barium Swallow Modified - 02/17/2018 1:55 pm CLINICAL HISTORY: Choking, coughing sensation congestion COMPARISON: None. TECHNIQUE: The patient was given liquid, semi-solid and solid forms of barium. Lateral view fluorosc opic imaging was performed in conjunction with speech pathology service. FINDINGS: A total of 25 cine loop acquisitions were obtained. Fluoro time was 4 minutes 54 seconds. Aspiration occurred with the thin liquid barium. Cough reflex was triggered. There was laryngeal pene tration on the nectar form of barium incompletely cleared by the patient. Contrast was seen to pool i n the valleculae and piriform sinuses. Esophageal stasis was noted. IMPRESSION: Modified barium swallow as detailed above and on speech pathology report.
--- NOTE | 2018-02-17 17:12 | P.PN ---
Subjective Date of Service: 02/17/18 Chief Complaint: UTI/septic/AFib with RVR Subjective: No new changes (But no further GI bleeding. Anesthesia deemed patient at too high risk to do procedure due to multiple medical problems including 7 cm aortic aneurysm and marked HTN today ~ 190/100.) Review of Systems 10-point ROS is otherwise unremarkable (feels better today.) Physical Examination - Vital Signs Temperature: 99.2 F Blood Pressure: 197/105 Pulse: 51 Respirations: 18 Pulse Ox (%): 95 - Studies Medications List Reviewed: Yes Assessment And Plan - Current Problems (Diagnosis) (1) Coffee ground emesis Current Visit: Yes Status: Acute (2) A-fib Current Visit: Yes Status: Acute (3) DIEGO (acute kidney injury) Onset Date: 02/17/18 Current Visit: Yes Status: Acute (4) Acute sepsis Onset Date: 02/17/18 Current Visit: Yes Status: Acute (5) GI bleeding Current Visit: Yes Status: Acute Qualifiers: GI bleed type/associated pathology: gastrointestinal hemorrhage with hematemesis Qualified Code(s): K92.0 - Hematemesis (6) Bipolar 1 disorder Current Visit: No Status: Chronic (7) COPD (chronic obstructive pulmonary disease) Current Visit: No Status: Chronic Qualifiers: COPD type: unspecified COPD Qualified Code(s): J44.9 - Chronic obstructive pulmonary disease, unspecified (8) Dementia Current Visit: No Status: Chronic Qualifiers: Dementia type: unspecified type Dementia behavioral disturbance: without behavioral disturbance Qualified Code(s): F03.90 - Unspecified dementia without behavioral disturbance (9) History of CVA (cerebrovascular accident) Current Visit: No Status: Chronic (10) History of coronary artery disease Current Visit: No Status: Chronic (11) Hypertension Current Visit: No Status: Chronic Qualifiers: Hypertension type: essential hypertension Qualified Code(s): I10 - Essential (primary) hypertension (12) Hypoxia Onset Date: 10/09/14 Current Visit: No Status: Resolved (13) Pneumonia Onset Date: 10/09/14 Current Visit: No Status: Ruled-out - Plan REC: 1) check alternative HP test and treat as indicated 2) PPI therapy 3) serial H&H and transfuse prn
[2018-02-17] MEDS: ATORVASTATIN 20 MG TAB PO SCH (20:45)
[2018-02-17] MEDS: TRAZODONE 50 MG TABLET PO SCH (20:45)
[2018-02-17] MEDS: DONEPEZIL HCL 5 MG TAB PO SCH (20:46)
[2018-02-18] MEDS: LEVOTHYROXINE SOD 0.1 MG TAB PO SCH (05:28)
[2018-02-18] MEDS: PANTOPRAZOLE INJ 80 MG in NA CHLORIDE 0.9% 250 ML IV SCH (05:28)
[2018-02-18] MEDS: CEFTRIAXONE/SWI 1gm 1 GM/10 ML SYR IV SCH (05:28)
[2018-02-18] MEDS: WATER FOR INJ,STERILE 10 ML IV SCH (09:00)
[2018-02-18] MEDS: DIVALPROEX NA 125 MG CAP PO SCH ×2 (09:43→14:00)
[2018-02-18] MEDS: cloNIDine HCl 0.1 MG TAB PO SCH ×2 (09:44→14:00)
[2018-02-18] MEDS: FINASTERIDE 5 MG TAB PO SCH (09:44)
[2018-02-18] MEDS: METOPROLOL TAR 25 MG TAB PO SCH (09:44)
[2018-02-18] MEDS: TAMSULOSIN 0.4 MG SR CAP PO SCH (09:45)
[2018-02-18] MEDS: AMLODIPINE 10 MG TAB PO SCH (09:45)
[2018-02-18] MEDS: MEMANTINE HCL 10 MG TABLET PO SCH (09:45)
[2018-02-18] MEDS: HYDROCORTISONE SUC 100 MG INJ IV SCH (09:46)
[2018-02-18 12:20] VITALS: BP 164/79; TEMP 97.7
[2018-02-18 14:24] VITALS: O2SAT 95
--- NOTE | 2018-02-19 13:38 | P.DS ---
Admission Date: 02/16/18 Discharge Date: 02/19/18 Disposition: TRANSFER TO GROUP HOME Discharge Condition: GOOD Reason for Admission: UTI/septic/AFib with RVR Consultations: Urology and GI - Problems (1) Acute sepsis Onset Date: 02/17/18 Status: Acute (2) UTI (urinary tract infection) Onset Date: 03/26/16 Status: Acute Qualifiers: Urinary tract infection type: acute cystitis Hematuria presence: without hematuria Qualified Code(s): N30.00 - Acute cystitis without hematuria (3) GI bleeding Status: Acute Qualifiers: GI bleed type/associated pathology: gastrointestinal hemorrhage with hematemesis Qualified Code(s): K92.0 - Hematemesis (4) DIEGO (acute kidney injury) Onset Date: 02/17/18 Status: Acute (5) COPD (chronic obstructive pulmonary disease) Status: Chronic Qualifiers: COPD type: unspecified COPD Qualified Code(s): J44.9 - Chronic obstructive pulmonary disease, unspecified (6) Bipolar 1 disorder Status: Chronic (7) Dementia Status: Chronic Qualifiers: Dementia type: unspecified type Dementia behavioral disturbance: without behavioral disturbance Qualified Code(s): F03.90 - Unspecified dementia without behavioral disturbance (8) History of CVA (cerebrovascular accident) Status: Chronic (9) History of coronary artery disease Status: Chronic (10) Hypertension Status: Chronic Qualifiers: Hypertension type: essential hypertension Qualified Code(s): I10 - Essential (primary) hypertension Brief History of Present Illness: Patient is a 73-year-old gentleman who came to the hospital with fever, shakes, and chills. Patient lives at [facility]. Patient apparently was running fevers. Patient also was tachycardic. Patient came into the emergency room for further evaluation. In the emergency room patient was found to have a urinary tract infection. Patient was started on IV hydration and blood cultures were obtained. Patient was also found to have AFib with RVR. Patient is on a beta-mesfin. According to patient's daughter, Raissa, who is patient's medical prior of estate planning attorney([phone]) patient is a full code. Patient normally gets to wheelchair and scoots around the facility. Patient is aphasic. At this time patient will need admission. He will require inpatient workup. Patient is admitted to the hospital for further workup Hospital Course: Overall during the hospital stay patient stable. Patient was initially admitted to the hospital for acute sepsis and GI bleeding. Patient has chronic advanced dementia S, aortic the aneurysm, and other comorbid condition which makes him at higher risk for any kind of surgical procedures. Patient was brought over to the hospital was found to have altered mental status secondary to UTI. Was started on IV antibiotics. Urology and GI was consulted for GI bleeding and scrotal edema. Urology recommended the patient is currently very high risk for procedure thus no surgical procedure was planned. And recommended the patient be placed on hospice given the advanced comorbid conditions along with advanced dementia. GI was consulted who initially planned for an EGD however given the history of abdominal aortic aneurysm and SVT patient was brought back from the anesthesia and patient id not have any EGD due to being unstable for the procedure. Patient did improve after 24 hr of IV antibiotics in terms of mentation however remained acutely ill due to GI bleeding. At that time patient's daughter Raissa who is the POA was contacted and patient was made DNR DNI. Raissa was explained about the comorbid condition and poor prognosis for the patient and the possibility of putting patient on hospice. POA agreed to pace the patient on hospice given the poor prognosis of less than 6 months with a diagnosis of advanced dementia. At that time hospice company was contacted and patient was enrolled in hospice and was transferred back to the group home with hospice services. Vital Signs/Physical Exam: Temp Pulse Resp BP Pulse Ox 97.7 F 57 16 164/79 H 91 02/18/18 12:00 02/18/18 12:00 02/18/18 12:00 02/18/18 12:00 02/18/18 12:00 General: Cachectic, Disheveled, Demented HEENT: Atraumatic Neck: Supple Respiratory: Normal air movement, Crackles/rales Cardiovascular: Regular rate/rhythm, Normal S1 S2 Gastrointestinal: Normal bowel sounds, Soft and benign, Non-distended Musculoskeletal: Contractures Integumentary: Skin breakdown, Skin lesion Neurological: Abnormal speech, Abnormal strength, Abnormal tone Laboratory Data at Discharge: WBC 11.6 K/uL (4.3-10.9) H D 02/17/18 05:25 Hgb 11.0 g/dL (13.6-17.9) L D 02/17/18 05:25 Hct 32.8 % (39.6-49.0) L D 02/17/18 05:25 Plt Count 130 K/uL (152-406) L D 02/17/18 05:25 PT 13.1 SECONDS (9.5-12.5) H 02/16/18 04:00 INR 1.11 02/16/18 04:00 APTT 28.4 SECONDS (24.3-36.9) 02/16/18 07:33 Sodium 151 mmol/L (136-145) H 02/17/18 05:25 Potassium 3.7 mmol/L (3.5-5.1) 02/17/18 05:25 BUN 31 mg/dL (7-18) H 02/17/18 05:25 Creatinine 1.00 mg/dL (0.55-1.3) 02/17/18 05:25 Glucose 108 mg/dL (74-106) H 02/17/18 05:25 Total Bilirubin 0.6 mg/dL (0.2-1.0) 02/17/18 05:25 AST 12 U/L (15-37) L 02/17/18 05:25 ALT 12 U/L (12-78) 02/17/18 05:25 Alkaline Phosphatase 74 U/L (45-117) 02/17/18 05:25 Troponin I 0.07 ng/mL (0.0-0.045) H 02/16/18 10:13 Lipase 39 U/L (73-393) L 02/16/18 04:00 Home Medications: Acetaminophen [Acetaminophen ER] 650 mg PO Q4H PRN 09/27/16 Atorvastatin Calcium [Lipitor*] 20 mg PO BEDTIME 09/27/16 Divalproex [Depakote Sprinkle*] 125 mg PO BID 09/27/16 Donepezil [Aricept*] 10 mg PO BEDTIME 09/27/16 Finasteride [Proscar*] 5 mg PO DAILY 09/27/16 Levothyroxine [Synthroid*] 100 mcg PO DAILY 09/27/16 Memantine HCl [Namenda*] 10 mg PO BID 09/27/16 Metoprolol Tartrate [Lopressor*] 25 mg PO DAILY 09/27/16 Multivitamin [Daily Multivitamin] 1 tab PO DAILY 09/27/16 Tamsulosin HCl [Flomax] 0.4 mg PO BID 09/27/16 cloNIDine HCl [Catapres*] 0.1 mg PO TID 09/27/16 Amlodipine [Norvasc*] 10 mg PO DAILY #30 tab 09/29/16 Enoxaparin Sodium [Lovenox 60 MG INJ] 60 mg SQ BID #60 syr 02/18/18 levoFLOXacin [Levaquin] 500 mg PO DAILY #14 tab 02/18/18 predniSONE [Prednisone] 20 mg PO BID #20 tablet 02/18/18 New Medications: Enoxaparin Sodium [Lovenox 60 MG INJ] 60 mg SQ BID #60 syr levoFLOXacin [Levaquin] 500 mg PO DAILY #14 tab predniSONE [Prednisone] 20 mg PO BID #20 tablet Patient Discharge Instructions: You are being enrolled in [facility] at the halfway. New medication. Levaquin 14 days for UTI. Prednisone Taper Dose for Stress. Change Plavix to lovenox due to Acute GI bleeding. Start after 1 week post discharge Diet: Regular Activity: Ad jimmy Followup: Rachelle Mckeon MD [ACTIVE - CAN ADMIT] -
--- NOTE | 2018-02-20 00:22 | CON ---
Date of Consultation: 02/16/2018 Reason For Consultation: Coffee-ground emesis with hemoglobin of 13.7 and sepsis. History Of Present Illness: The patient is a 73-year-old white male who came to the hospital due to urinary tract infection with sepsis and atrial fibrillation with rapid ventricular response. The pat shira was noted to have coffee-ground emesis yesterday, it appears. Hemoglobin is stable at 13.7. Ho wever, he has severe dementia and status post stroke with PEG tube in place. Does not appear to take anything by mouth. There is no report of any melena, hematochezia, weakness, dizziness, seizures, o r syncope. Past Medical History: Significant for hypertension, hyperlipidemia, hypothyroid, dementia, benign pr ostatic hypertrophy, stroke, urinary tract infection, iron deficiency anemia, bipolar disorder, schiz ophrenia, PEG tube, cardiac stent. Medications: Tylenol, Lipitor, Plavix, Depakote, Aricept, Proscar, Robaxin, Synthroid, Namenda, Lopr essor, multivitamin, Flomax, trazodone, Catapres, amlodipine. Family History: Noncontributory per chart review. Social History: No tobacco or alcohol. He lives in a care facility senior living. Review of Systems: The patient had coffee-ground emesis, sepsis with tachycardia on admission, well controlled now, it a ppears. No melena, hematochezia, hemoptysis, hematuria, dysuria, or polydipsia. No shortness of tea ath, seizure, syncope, lower extremity paresthesias, muscle aches, joint aches, backaches. Dementia noted. Physical Examination: Vital Signs: He is 5 feet 5 inches, 150 pounds, BMI 25 kg/sq m. HEENT: Normocephalic and atraumatic. Anicteric. Pupils are equal, round, and reactive to light. E xtraocular movements intact. Oropharynx is clear. Neck: Supple. No masses. Respirations: Clear to auscultation bilaterally. Cardiac: Regular rate and rhythm. Gastrointestinal: Positive bowel sounds. Soft, nontender, nondistended. No hepatosplenomegaly. Extremities: No clubbing, cyanosis, or edema. 2+ pulses. Neurologic: Alert and oriented x1. Grossly nonfocal. 5/5 motor strength. Sensation intact to ligh t touch. Data: The patient has a white count of 13.7, down from 14.8 earlier today; hemoglobin 13.7; hematocr it 41.3; MCV of 87; platelet count of 183. Polys of 95%, lymphocytes 3%, monocytes 2%. PT 15.1, INR of 1.1, PTT of 28.4. Sodium 150, potassium 3.3, chloride 112, bicarb 28, BUN 25, creatinine 1.4, gl ucose 202. Lactic acid of 7.6, slightly high. Calcium 8.8. Troponin I 0.07. AST of 13, ALT of 13, total bili 1.0, alkaline phosphatase 125, total protein 7.0, albumin 3.8, lipase 39. 1+ ketones, 1+ blood, 1+ leukocyte esterase, 10 to 20 white blood cells, squamous epithelial cells less than 5, mell ded bacteria of UTI. CT of abdomen and pelvis revealed cholelithiasis without acute gallbladder disease, infrarenal abdomi nal aortic aneurysm large 8 cm. L2 compression fracture with mild wedging of T11-L1 bodies. Impression: 1.Coffee-ground emesis. Hemoglobin is stable at 13.7. 2.Sepsis with urinary tract infection. 3.Urinary tract infection. 4.Acute renal failure with hydrocele on exam. Currently Urology following. 5.Chronic obstructive pulmonary disease. 6.Large infrarenal aortic abdominal aneurysm. The patient has not had surgery on this nor stent eldon cement. He has increased risk for surgical procedures. 7.History of dementia, coronary artery disease, stroke, chronic obstructive pulmonary disease as wel l. Recommendation: 1.PPI therapy. 2.IV fluids. 3.Serial H and Hs and transfuse p.r.n. 4.Consider EGD. Addendum: Anesthesia thought the patient is too high risk for EGD procedure with greater than 7 cm i nfrarenal abdominal aortic aneurysm. Has not had therapy including no stent nor surgery and hyperten geoff with elevated blood pressure on the day of procedure to approximately 190/100, and therefore the patient thought to be high risk by Anesthesia preprocedure. ANIL/JANET Voice ID: [id number] Report ID: [id number]
== END 2018-02-18 14:45 | disposition hospice, inpatient (51) | DRG 872 ==
LOC: ER 03:37 → ERHOLD 06:26 → 4TH 07:51
PROVIDERS: ADMIT Hospitalist; ATTEND Family Medicine
DX: A41.9 Sepsis, unspecified organism (principal); K92.0 Hematemesis; N17.9 Acute kidney failure, unspecified; N30.00 Acute cystitis without hematuria; E87.2 Acidosis; J44.9 Chronic obstructive pulmonary disease, unspecified; N43.3 Hydrocele, unspecified; I25.10 Atherosclerotic heart disease of native coronary artery without angina pectoris; I71.4 Abdominal aortic aneurysm, without rupture; I48.91 Unspecified atrial fibrillation; F03.90 Unspecified dementia, unspecified severity, without behavioral disturbance, psychotic disturbance, mood disturbance, and anxiety; Z93.1 Gastrostomy status; I10 Essential (primary) hypertension; E78.5 Hyperlipidemia, unspecified; E03.9 Hypothyroidism, unspecified; N40.0 Benign prostatic hyperplasia without lower urinary tract symptoms; D50.9 Iron deficiency anemia, unspecified; F31.9 Bipolar disorder, unspecified; F20.9 Schizophrenia, unspecified; Z95.5 Presence of coronary angioplasty implant and graft; Z79.02 Long term (current) use of antithrombotics/antiplatelets; I69.320 Aphasia following cerebral infarction; Z66 Do not resuscitate; Z51.5 Encounter for palliative care
CPT/HCPCS: 36415; 51702; 71045; 74177; 74230; 76870; 80048; 80053; 81003; 81015; 82962; 83605; 83690; 84145; 84484; 85025; 85610; 85730; 86850; 86900; 86901; 87040; 87077; 87086; 87088; 87186; 87205; 93005; 94640; 94760; 99285; C9113; J0696; J1720; J2405; J2930; J7030; Q9967